=== PATIENT | female | born 1945 | race African-American/Black ===

== ENCOUNTER 2017-06-11 17:58 | Inpatient (IN) | payer OTHER ==
[~2017-06-11] VITALS: Ht 172.7 cm; Wt 81.2 kg
--- NOTE | 2017-06-11 18:07 | NUR ---
PT PLACED IN BED 10 BY EMS.
[2017-06-11 18:14] VITALS: BP 195/108
--- NOTE | 2017-06-11 18:15 | NUR ---
72 F BIBA WITH C/O ANXIETY AND CHEST TIGHTNESS STARTED SUDDENLY WHILE AT HOME; PT STS CP IS 10/10 "PRESSURE/TIGHTNESS" PROVOKED BY "HER ANIXETY" INTERMITTENT PAIN TO LEFT AND RIGHT SIDE OF CHEST; PT STS HX OF ANXIETY AND "RAN OUT OF XANAX PILLS"; PT ALSO REPORT OF COUGH AND "ALL OVER BODY" PAIN; PT IS AOX4, RR ARE EVEN AND UNLABORED; ER MD CALVILLO AWARE OF PT STATUS; NAD; PT POSITIONED TO COMFORT, BED DOWN. WILL CONTINUE TO MONITOR.
--- NOTE | 2017-06-11 18:54 | NUR ---
X-Ray at bedside.
[2017-06-11 19:01] LABS: BASOPHILS # (AUTO) 0.2 K/uL (0.00-0.22); BASOPHILS % (AUTO) 1.8 % (0.0-2.0); EOSINOPHILS # (AUTO) 0.1 K/uL (0-0.4); EOSINOPHILS % (AUTO) 0.8 % (0.0-4.0); HEMATOCRIT 36.1 % (36-48); HEMOGLOBIN 11.4 g/dL (12.0-16.0); LYMPHOCYTES # (AUTO) 2.4 K/uL (2.5-16.5); LYMPHOCYTES % (AUTO) 25.4 % (20.5-51.1); MEAN CORPUSCULAR HEMOGLOBIN 23 pg (27-31); MEAN CORPUSCULAR HGB CONC 32 g/dL (33-37); MEAN CORPUSCULAR VOLUME 73 fL (80-94); MONOCYTES # (AUTO) 0.7 K/uL (0.8-1.0); MONOCYTES % (AUTO) 7.6 % (1.7-9.3); NEUTROPHILS # (AUTO) 5.9 K/uL (1.8-7.7); NEUTROPHILS % (AUTO) 64.4 % (42.2-75.2); PLATELET COUNT (AUTO) 227 K/uL (140-450); RED BLOOD CELL COUNT(AUTO) 4.98 MIL/uL (4.20-5.40); RED CELL DISTRIBUTION WIDTH 15.4 % (11.6-13.7); WHITE BLOOD COUNT (AUTO) 9.3 K/uL (4.8-10.8)
--- NOTE | 2017-06-11 19:15 | NUR ---
PT RESTING IN BED, VSS.
[2017-06-11 19:20] LABS: PROTHROMBIN TIME 10.5 secs (10.8-13.4)
--- NOTE | 2017-06-11 19:20 | NUR ---
Pt report given to Iman PEREZ. Transfer of care at this time.
--- NOTE | 2017-06-11 19:22 | NUR ---
PT TRNF TO BED 12-AAOX4
[2017-06-11 19:45] LABS: ALBUMIN 3.4 g/dL (3.4-5.0); ANION GAP 7.5 (8-16); ASPARTATE AMINOTRANSFERASE 16 U/L (15-37); CARBON DIOXIDE 31.6 mmol/L (21-32); CHLORIDE 103 mmol/L (98-107); CREATININE 0.9 mg/dL (0.6-1.3); GLUCOSE 93 mg/dL (74-106); POTASSIUM 4.1 mmol/L (3.5-5.1); SODIUM SERUM 138 mmol/L (136-145); TOTAL BILIRUBIN 0.2 mg/dL (0.0-1.0); UREA NITROGEN, BLOOD 15 mg/dL (7-18)
[2017-06-11] MEDS ORDERED: ALPRAZolam 0.5 MG TAB PO ONE (19:55)
--- NOTE | 2017-06-11 19:58 | NUR ---
PO MEDS GIVEN-NADR AT THIS TIME
[2017-06-11] MEDS ORDERED: LORazepam 2 MG/ML VIAL IVP PRN (20:40)
[2017-06-11] MEDS ORDERED: ONDANSETRON 4 MG/2 ML VIAL IVP PRN (20:40)
[2017-06-11] MEDS ORDERED: ACETAMINOPHEN 325 MG TAB PO PRN (20:40)
[2017-06-11] MEDS ORDERED: ALPR1TAB2 PO (21:32)
[2017-06-11] MEDS ORDERED: ZOLP10TA1 PO (21:32)
[2017-06-11] MEDS ORDERED: ACET-2858 PO (21:36)
--- NOTE | 2017-06-11 21:49 | NUR ---
PT TRANSFERED TO FLOOR VIA GURNEY. NO S/S OF DISTRESS NOTED. ACCOMPANIED BY EMT AND RN .
[2017-06-11 21:55] VITALS: BP 140/71
--- NOTE | 2017-06-11 21:55 | NUR ---
ADMITTED A 72F FROM ER. CAME BY BERNADINE WITH C/O CHEST PAIN, X FEW DAYS, WITH OCCASIONAL COUGH AND WHEEZING . PT AWAKE, ALERT AND ORIENTED X4. ON TELE MONITOR, SR WITH BBB. AMBULATORY WITH CANE AT HOME BUT SHE SAID HER CANE GOT BROKEN. HX: FALLING 2 WEEKS AGO. WITH ARTHRITIS ON BOTH KNEES AND HANDS AND ALSO LT HIP. PT HAS HL ON THE LT AC#20, CLEAR AND PATENT. PLAN OF CARE DISCUSSED AND VERBALIZED UNDERSTANDING. ORIENTED TO HOSPITAL ROUTINES, CALL LIGHT AND VISITING HOURS. BED ON LOW POSITION, FREQUENT ROUNDS NEEDED. CALL LIGHT PLACED WITHIN EASY REACH. WILL CONTINUE TO MONITOR.
--- NOTE | 2017-06-11 21:55 | NUR ---
REPORT GIVEN TO ANA WELLS AT BEDSIDE.
[2017-06-11] MEDS ORDERED: ZOLPIDEM 5 MG TAB PO PRN (22:25)
[2017-06-11] MEDS ORDERED: cloNIDine 0.1 MG TAB PO PRN (22:25)
--- NOTE | 2017-06-11 23:50 | NUR ---
PT C/O PAIN FROM ARTHRITIS. PT IS TAKING HYDROCODONE 5/325 PO NEEDED FRO PAIN . PT SAID SHE ONLY HAVE ALLERGY TO CODEINE ITSELF BUT SHE IS OK WITH HYDROCODONE . PAGED DR. SALOMON . CALLED BACK AND MADE ORDERS FOR BOTH HYDROCODONE AND ALSO CYMBALTA THAT PT ALSO TAKING AT HOME.
[2017-06-11] MEDS ORDERED: DULoxetine 30 MG CAPDR PO SCH (23:55)
--- NOTE | 2017-06-12 00:05 | NUR ---
USED BEDPAN TO VOID . NO C/O PAIN AT THIS TIME.
[2017-06-12 00:30] VITALS: BP 146/72
[2017-06-12] MEDS: HYDROcodone/APAP 5/325 MG 1 TAB TAB PO PRN ×3 (01:07→16:20)
--- NOTE | 2017-06-12 01:40 | NUR ---
RN SHIP JOINER UNABLE TO OVERRIDE REZAALTA . CHECK PT, SLEEPING AT THIS TIME.
--- NOTE | 2017-06-12 02:45 | NUR ---
DAUGHTER CALLED BACK . MADE AWARE TO BRING ALL HOME MEDS ERINN .
[2017-06-12] MEDS: ALPRAZolam 0.5 MG TAB PO PRN ×3 (03:20→20:21)
--- NOTE | 2017-06-12 03:20 | NUR ---
PT IS ANXIOUS. ,MEDICATED ORDERED WITH XANAX. WILL CONTINUE TO MONITOR.
[2017-06-12 03:50] LABS: CREATINE KINASE MB 0.4 ng/mL (0-3.6)
[2017-06-12 04:00] VITALS: BP 151/81
--- NOTE | 2017-06-12 07:10 | NUR ---
ENDORSED PT IN STABLE CONDITION TO AM NURSE.
--- NOTE | 2017-06-12 07:30 | NUR ---
RECEIVED PT ON BED AAOX4. NO SOB NOTED. NO C/O PAIN AT THIS TIME. IV TO LT AC PATENT AND INTACT. CHEST CLEAR. ABDOMEN SOFT, BOWEL SOUNDS PRESENT. INSTRUCTED PT TO CALL FOR ASSISTANCE, CALL LIGHT WITHIN REACH, PT VERBALIZED UNDERSTANDING
[2017-06-12 08:00] VITALS: BP 130/79
[2017-06-12 08:18] LABS: BASOPHILS # (AUTO) 0.1 K/uL (0.00-0.22); BASOPHILS % (AUTO) 1.6 % (0.0-2.0); EOSINOPHILS # (AUTO) 0.1 K/uL (0-0.4); EOSINOPHILS % (AUTO) 1.2 % (0.0-4.0); HEMATOCRIT 35.8 % (36-48); LYMPHOCYTES # (AUTO) 1.9 K/uL (2.5-16.5); MEAN CORPUSCULAR HEMOGLOBIN 23 pg (27-31); MEAN CORPUSCULAR HGB CONC 31 g/dL (33-37); MEAN CORPUSCULAR VOLUME 73 fL (80-94); MONOCYTES # (AUTO) 0.4 K/uL (0.8-1.0); MONOCYTES % (AUTO) 5.3 % (1.7-9.3); NEUTROPHILS # (AUTO) 5.9 K/uL (1.8-7.7); NEUTROPHILS % (AUTO) 68.9 % (42.2-75.2); PLATELET COUNT (AUTO) 213 K/uL (140-450); RED BLOOD CELL COUNT(AUTO) 4.87 MIL/uL (4.20-5.40); WHITE BLOOD COUNT (AUTO) 8.4 K/uL (4.8-10.8)
[2017-06-12 08:34] LABS: ALBUMIN 3.1 g/dL (3.4-5.0); ANION GAP 9.6 (8-16); ASPARTATE AMINOTRANSFERASE 16 U/L (15-37); CARBON DIOXIDE 28.2 mmol/L (21-32); CHLORIDE 106 mmol/L (98-107); CREATININE 0.8 mg/dL (0.6-1.3); GLUCOSE 101 mg/dL (74-106); POTASSIUM 3.8 mmol/L (3.5-5.1); SODIUM SERUM 140 mmol/L (136-145); TOTAL BILIRUBIN 0.4 mg/dL (0.0-1.0); UREA NITROGEN, BLOOD 12 mg/dL (7-18)
[2017-06-12] MEDS: ASPIRIN 81 MG TAB.CHEW PO SCH (09:29)
[2017-06-12] MEDS: METOPROLOL 25 MG TAB PO SCH ×2 (09:30→20:21)
[2017-06-12] MEDS: DULoxetine 30 MG CAPDR PO SCH ×2 (09:30→20:21)
--- NOTE | 2017-06-12 10:26 | NUR ---
PATIENT HAS BEEN SCREENED AND CATEGORIZED MODERATE NUTRITION RISK. PATIENT WILL BE SEEN WITHIN 3-5 DAYS OF ADMISSION. 06/13/17-06/15/[address]
[2017-06-12 12:00] VITALS: BP 142/83
--- NOTE | 2017-06-12 12:21 | NUR ---
SPOKE WITH DAYNA FROM [facility]. SHE SAID ONLY FAX REVIEW TO THEM. FAXED INITIAL REVIEW TO [facility] [phone] PHONE DAYNA [phone]
--- NOTE | 2017-06-12 12:36 | NUR ---
DR. HUERTAS HERE TO SEE PT. Destiny CARREON TO FOLLOW UP WITH CARDIO CONSULT.
[2017-06-12 13:48] LABS: CREATINE KINASE MB 0.5 ng/mL (0-3.6)
[2017-06-12 16:00] VITALS: BP 138/70
--- NOTE | 2017-06-12 16:40 | NUR ---
PT RESTING. NO SOB NOTED. NO SIGNS OF PAIN.
--- NOTE | 2017-06-12 19:15 | NUR ---
PT AWAKE. NO SOB NOTED. NO COMPLAINTS MADE. WILL ENDORSE TO NEXT SHIFT NURSE FOR CONTINUITY OF CARE.
--- NOTE | 2017-06-12 19:20 | NUR ---
RECEIVED PT IN STABLE CONDITION FROM AM NURSE. AWAKE, ALERT AND ORIENTED X4. ON TELE MONITOR. WITH NO C/O PAIN AT THIS TIME. CAN BE UP TO BSC WITH ASSISTANCE. HL ON THE LT AC #20. CLEAR AND PATENT. WITH FAMILY MEMBERS AT BEDSIDE. DR. TIMOTHY Dixon CAME AND SEEN PT. PLAN OF CARE DISCUSSED AND VERBALIZED UNDERSTANDING. CALL LIGHT PLACED WITHINE ASY REACH. WILL CONTINUE TO MONITOR.
[2017-06-12 20:00] VITALS: BP 149/77
--- NOTE | 2017-06-12 20:21 | NUR ---
PT C/O ANXIETY. REQUESTED FOR XANAX. GIVEN ORDERED. WILL CONTINUE TO MONITOR.
--- NOTE | 2017-06-12 22:00 | NUR ---
MADE ROUNDS. ASLEEP. NO S/S OF ANY DISCOMFORT NOR PAIN NOTED.
[2017-06-12 23:03] LABS: CREATINE KINASE MB 0.3 ng/mL (0-3.6)
[2017-06-13] LABS: BARBITURATE, URINE NEG. ng/ml (NEG <=200); BENZODIAZEPINE, URINE POS. ng/mL (NEG <=200); CANNABINOID, URINE NEG. ng/mL (NEG <=50); COCAINE, URINE NEG. ng/mL (NEG <=300); OPIATE, URINE POS. ng/mL (NEG <=2000); PHENCYCLIDINE SCREEN,URINE NEG. ng/mL (NEG <=25)
[2017-06-13 00:50] VITALS: BP 141/75
--- NOTE | 2017-06-13 01:30 | NUR ---
MADE ROUNDS .PT IS SLEEPING WELL. NO S/S OF ANY DISCOMFORT NOR PAIN NOTED.
--- NOTE | 2017-06-13 02:30 | NUR ---
MADE ROUNDS. PT STILL SLEEPING AT THIS TIME. NO DISTRESS NOTED.
[2017-06-13 05:11] VITALS: BP 136/78
[2017-06-13] MEDS: ALPRAZolam 0.5 MG TAB PO PRN ×2 (05:17→15:07)
--- NOTE | 2017-06-13 05:17 | NUR ---
PT WOKE UP AND SAID SHE FEELS SHAKY,ANXIOUS. MEDICATED WITH XANAX ORDERED.
[2017-06-13] MEDS: HYDROcodone/APAP 5/325 MG 1 TAB TAB PO PRN ×3 (05:45→17:56)
[2017-06-13] MEDS ORDERED: LEVOTHYROXINE 0.075 MG TAB PO SCH (06:30)
--- NOTE | 2017-06-13 07:30 | NUR ---
RECEIVED PT REPORT FROM CHIEF ENGINEER RN. PT AAOX4. NO SOB NOTED. NO C/O PAIN AT THIS TIME. IV TO LT AC PATENT AND INTACT, SALINE LOCKED. CHEST CLEAR. ABDOMEN SOFT, BOWEL SOUNDS PRESENT. BED IN LOW POSITION, CALL LIGHT WITHIN REACH, WILL CONTINUE TO MONITOR.
--- NOTE | 2017-06-13 07:34 | NUR ---
ENDORSED PT IN STABLE CONDITION TO AM NURSE.
[2017-06-13 08:00] VITALS: BP 137/76
--- NOTE | 2017-06-13 08:42 | NUR ---
CM NOTE FAXED CONCURRENT REVIEW TO [facility] [phone] PHONE DAYNA [phone]
[2017-06-13] MEDS ORDERED: ATORVASTATIN 20 MG TAB PO SCH (09:00)
[2017-06-13] MEDS: ASPIRIN 81 MG TAB.CHEW PO SCH (09:27)
[2017-06-13] MEDS: DULoxetine 30 MG CAPDR PO SCH (09:27)
[2017-06-13] MEDS: METOPROLOL 25 MG TAB PO SCH (09:27)
[2017-06-13 12:00] VITALS: BP 131/77
--- NOTE | 2017-06-13 12:30 | NUR ---
DR HUERTAS HAS SEEN THE PT. NO S/S OF DISTRESS NOTED. PT HAS BEEN RULED OUT [facility]
--- NOTE | 2017-06-13 13:57 | NUR ---
OLIVIER NOTE FAXED ORDER FOR HOME HEALTH TO [facility] [phone]. PER SEAN GALVAN PH# [phone], SHE IS ARRANGING HOME HEALTH FOR NURSING EVAL.
[2017-06-13] MEDS ORDERED: ALPR1TAB2 PO ×2 (15:53→15:55)
[2017-06-13] MEDS ORDERED: ATOR10TA PO ×2 (15:57→16:01)
[2017-06-13 16:00] VITALS: BP 135/73
--- NOTE | 2017-06-13 16:00 | NUR ---
CALLED PT'S PHARMACY OF [facility] IN [place]. CONFIRMED THAT PT'S RX FOR LEVOTHYROXINE, REFILL TIL NOVEMBER.
--- NOTE | 2017-06-13 16:30 | NUR ---
DISCHARGE PT PER MD PROTOCOL. DISCHARGE INSTRUCTIONS GIVEN, MEDICATION TEACHINGS GIVEN, PT VERBALIZED UNDERSTANDING. PT SIGNED ALL DISCHARGE PAPER WORK. PT'S IV DC'ED, TIP INTACT, PRESSURE APPLIED. NO S/S OF DISTRESS NOTED. PT WANTS TO HAVE SHOWER HERE AND WAITING FOR RIDE FROM HER DAUGHTER.
== END 2017-06-13 19:00 | disposition home health service (06) | DRG 203 ==
LOC: MED 17:58 → MTU 21:38
PROVIDERS: ADMIT Hospitalist; ATTEND Hospitalist
DX: J20.9 Acute bronchitis, unspecified (principal); I11.9 Hypertensive heart disease without heart failure; I45.10 Unspecified right bundle-branch block; E03.9 Hypothyroidism, unspecified; I25.10 Atherosclerotic heart disease of native coronary artery without angina pectoris; I44.0 Atrioventricular block, first degree; E66.09 Other obesity due to excess calories; F32.9 Major depressive disorder, single episode, unspecified; F41.9 Anxiety disorder, unspecified; M19.90 Unspecified osteoarthritis, unspecified site; I25.2 Old myocardial infarction; Z88.0 Allergy status to penicillin; Z88.5 Allergy status to narcotic agent; Z95.1 Presence of aortocoronary bypass graft; Z68.27 Body mass index [BMI] 27.0-27.9, adult; Z28.21 Immunization not carried out because of patient refusal
CPT/HCPCS: 36415; 80053; 80305; 82550; 82553; 83880; 84484; 85025; 85610; 85730; 87081; 93005; 99285; Q0092

== ENCOUNTER 2021-05-16 10:24 | Emergency (ER) | payer OTHER, MEDICAID ==
[~2021-05-16] VITALS: Ht 170.2 cm; Wt 96.6 kg
[~2021-05-16 10:24] MED LIST: ALPR1TAB2 PO; ATOR10TA PO; HYDR-5092 PO; ZOLP10TA1 PO
[2021-05-16 10:36] VITALS: BP 160/90
[2021-05-16] MEDS ORDERED: LORazepam 1 MG TAB PO ONE (10:55)
[2021-05-16] MEDS ORDERED: KETOROLAC 30 MG/ML VIAL IM ONE (10:55)
--- NOTE | 2021-05-16 11:15 | NUR ---
LITIGATION ASSOCI[facility].
--- NOTE | 2021-05-16 11:32 | NUR ---
76 y/o f biba als from home, pt presents to ed with general body pain, anxiety and htn. pt states she was on hydrocodone and was taking consistently for hip and knee replacement pain. pcp discontinued medication and is now having same pains. pt ambluates with assist. Skin is pink/warm/dry. a&o x4. Lungs clear bl, heart rate even and regular. Pt denies any fever, cp, sob, or cough at this time. Patient states pain is 10/10 at this time. Vss. patient positioned for comfort. Hob elevated. Bed down. Ermd made aware of pt. pt baseline is incontinent, diapered. pmh: htn, dm2 allergy: penicillin, codeine med: hydrocodone, lyrica
--- NOTE | 2021-05-16 13:02 | NUR ---
daughter was called per alivia hope, she will providing her a transport. granddaughter is at home to help ambulate with assist.
[2021-05-16 13:21] VITALS: BP 160/90
--- NOTE | 2021-05-16 13:21 | NUR ---
Patient discharged with v/s stable. Written and verbal after care instructions given and explained. Patient verbalized understanding. Wheel Chair Assisted with to car. All questions addressed prior to discharge. Advised to follow up with PMD. aiden two rn, pt refused to sign
== END 2021-05-16 13:21 | disposition home or self-care (01) ==
LOC: MED 10:24
DX: M25.552 Pain in left hip (principal); G89.29 Other chronic pain; F41.9 Anxiety disorder, unspecified; I25.10 Atherosclerotic heart disease of native coronary artery without angina pectoris; E11.9 Type 2 diabetes mellitus without complications; I10 Essential (primary) hypertension; Z86.39 Personal history of other endocrine, nutritional and metabolic disease; Z98.890 Other specified postprocedural states; Z96.642 Presence of left artificial hip joint; M25.561 Pain in right knee; Z79.899 Other long term (current) drug therapy; Z79.891 Long term (current) use of opiate analgesic; Z88.0 Allergy status to penicillin; Z88.5 Allergy status to narcotic agent
CPT/HCPCS: 73502; 96372; 99283; J1885; Q0092

== ENCOUNTER 2022-12-19 15:37 | Emergency (ER) | payer OTHER ==
[~2022-12-19] VITALS: Ht 170.2 cm; Wt 81.6 kg
[2022-12-19 15:41] VITALS: BP 118/78; PULSE 88; RESP 17; TEMP 97.4; O2SAT 97
--- NOTE | 2022-12-19 15:46 | NUR ---
MAIK , ALS PATIENT BIBA TO [facility]
[2022-12-19] MEDS ORDERED: KETOROLAC 60 MG/2 ML VIAL IM ONE (16:15)
[2022-12-19] MEDS ORDERED: OMEP40EC24 PO (16:26)
[2022-12-19] MEDS ORDERED: CIPR500T4 PO (16:26)
[2022-12-19] MEDS ORDERED: ONDA8TAB87 PO (16:26)
[2022-12-19] MEDS ORDERED: HYDR-5191 PO (16:26)
--- NOTE | 2022-12-19 17:30 | NUR ---
Patient discharged with v/s stable. Written and verbal after care instructions given and explained. Patient verbalized understanding. Ambulatory with steady gait. All questions addressed prior to discharge. Advised to follow up with PMD.
[2022-12-20 07:26] VITALS: O2SAT 97
== END 2022-12-19 17:30 | disposition home or self-care (01) ==
LOC: MED 15:37
DX: R10.13 Epigastric pain (principal); R19.7 Diarrhea, unspecified; R11.2 Nausea with vomiting, unspecified; M25.561 Pain in right knee; E11.9 Type 2 diabetes mellitus without complications; E03.9 Hypothyroidism, unspecified; I11.0 Hypertensive heart disease with heart failure; Z88.0 Allergy status to penicillin; Z88.5 Allergy status to narcotic agent; Z79.4 Long term (current) use of insulin; Z79.899 Other long term (current) drug therapy; Z98.890 Other specified postprocedural states
CPT/HCPCS: 96372; 99283; J1885

== ENCOUNTER 2022-12-22 17:08 | Observation (INO) | payer OTHER ==
[~2022-12-22] VITALS: Ht 172.7 cm; Wt 93.9 kg
[~2022-12-22 17:08] MED LIST changes: +CIPR500T4 PO; +HYDR-5191 PO; +OMEP40EC24 PO; +ONDA8TAB87 PO
[2022-12-22 17:33] VITALS: BP 119/59; PULSE 69; RESP 20; TEMP 98; O2SAT 97
[2022-12-22 18:02] LABS: BASOPHILS # (AUTO) 0.1 K/uL (0.00-0.22); BASOPHILS % (AUTO) 0.8 % (0.0-2.0); EOSINOPHILS # (AUTO) 0.1 K/uL (0-0.4); HEMATOCRIT 36.3 % (36-48); HEMOGLOBIN 11.5 g/dL (12.0-16.0); LYMPHOCYTES # (AUTO) 2.5 K/uL (2.5-16.5); LYMPHOCYTES % (AUTO) 22.1 % (20.5-51.1); MEAN CORPUSCULAR HEMOGLOBIN 23 pg (27-31); MEAN CORPUSCULAR HGB CONC 32 g/dL (33-37); MEAN CORPUSCULAR VOLUME 72.6 fL (80-94); MONOCYTES # (AUTO) 0.7 K/uL (0.8-1.0); MONOCYTES % (AUTO) 6.5 % (1.7-9.3); NEUTROPHILS % (AUTO) 69.6 % (42.2-75.2); PLATELET COUNT (AUTO) 475 K/uL (140-450); RED CELL DISTRIBUTION WIDTH 14.7 % (11.6-13.7); WHITE BLOOD COUNT (AUTO) 11.5 K/uL (4.8-10.8)
[2022-12-22 18:25] LABS: ALBUMIN 2.9 g/dL (3.4-5.0); ANION GAP 4.3 (8-16); ASPARTATE AMINOTRANSFERASE 34 U/L (15-37); CARBON DIOXIDE 37.3 mmol/L (21-32); CHLORIDE 98 mmol/L (98-107); CREATININE 1.3 mg/dL (0.6-1.3); GLUCOSE 130 mg/dL (74-106); LIPASE 116 U/L (73-393); SODIUM SERUM 137 mmol/L (136-145); TOTAL BILIRUBIN 0.2 mg/dL (0.0-1.0); UREA NITROGEN, BLOOD 7 mg/dL (7-18)
[2022-12-22 18:35] LABS: POTASSIUM 2.6 mmol/L (3.5-5.1)
--- NOTE | 2022-12-22 19:03 | NUR ---
pt to bed 11 w/c assisted
[2022-12-22] MEDS ORDERED: POTASSIUM CHLORIDE 10 MEQ TABER PO ONE (19:20)
[2022-12-22] MEDS ORDERED: ONDANSETRON 4 MG/2 ML VIAL IVP ONE (19:25)
[2022-12-22] MEDS ORDERED: NACL 0.9% 1,000 ML IV ONE (19:25)
--- NOTE | 2022-12-22 19:29 | NUR ---
Report given to ANA Lee for transfer of care.
[2022-12-22] MEDS: MORPHINE SULFATE 4 MG/ML SYR IVP ONE ×2 (20:07→20:13)
[2022-12-22] MEDS ORDERED: LOPERAMIDE 2 MG CAP PO PRN (20:15)
[2022-12-22] MEDS ORDERED: HYDROcodone/APAP 5/325 MG 1 TAB TAB PO PRN (20:15)
[2022-12-22] MEDS ORDERED: ONDANSETRON 4 MG/2 ML VIAL IVP PRN (20:15)
[2022-12-22] MEDS ORDERED: ACETAMINOPHEN 325 MG TAB PO PRN (20:15)
--- NOTE | 2022-12-22 20:15 | NUR ---
Pt refused morphine stating it makes her feel nauseated, per pt norco 10 mg usually helps better with her pain. ERMD made aware.
[2022-12-22] MEDS ORDERED: HYDROcodone/APAP 10/325 MG 1 TAB TAB PO ONE (20:25)
[2022-12-22] MEDS: NACL 0.9% 1,000 ML IV SCH (21:06)
--- NOTE | 2022-12-22 23:15 | NUR ---
Resting comfortably at this time. No s/s pain or discomfort. Rise and fall of chest noted.
--- NOTE | 2022-12-23 01:17 | NUR ---
Pt c/o lower back and buttock pain 9/. Pt stated she would like to have morphine as helps her better with pain. PRN morphine given as ordered.
[2022-12-23] MEDS: MORPHINE SULFATE 4 MG/ML SYR IVP PRN (01:24)
--- NOTE | 2022-12-23 03:37 | NUR ---
Pt resting comfortably. Rise and fall of chest noted.
--- NOTE | 2022-12-23 05:03 | NUR ---
Pt awake at this time and eating food, no s/s distress.
--- NOTE | 2022-12-23 07:06 | NUR ---
Pt noted resting comfortably at this time. No s/s distress or discomfort, Rise and fall of chest noted.
[2022-12-23 07:14] LABS: BASOPHILS # (AUTO) 0.1 K/uL (0.00-0.22); BASOPHILS % (AUTO) 0.5 % (0.0-2.0); EOSINOPHILS # (AUTO) 0.2 K/uL (0-0.4); EOSINOPHILS % (AUTO) 1.6 % (0.0-4.0); HEMATOCRIT 33.7 % (36-48); HEMOGLOBIN 10.7 g/dL (12.0-16.0); LYMPHOCYTES # (AUTO) 1.8 K/uL (2.5-16.5); LYMPHOCYTES % (AUTO) 18.1 % (20.5-51.1); MEAN CORPUSCULAR HEMOGLOBIN 23 pg (27-31); MEAN CORPUSCULAR HGB CONC 32 g/dL (33-37); MEAN CORPUSCULAR VOLUME 73.5 fL (80-94); MONOCYTES # (AUTO) 0.8 K/uL (0.8-1.0); MONOCYTES % (AUTO) 7.9 % (1.7-9.3); NEUTROPHILS # (AUTO) 7.3 K/uL (1.8-7.7); NEUTROPHILS % (AUTO) 71.9 % (42.2-75.2); PLATELET COUNT (AUTO) 365 K/uL (140-450); RED BLOOD CELL COUNT(AUTO) 4.59 MIL/uL (4.20-5.40); RED CELL DISTRIBUTION WIDTH 15.1 % (11.6-13.7); WHITE BLOOD COUNT (AUTO) 10.1 K/uL (4.8-10.8)
--- NOTE | 2022-12-23 07:26 | NUR ---
Report given to Jimena PEREZ
[2022-12-23 07:52] LABS: CARBON DIOXIDE 31.7 mmol/L (21-32); CHLORIDE 102 mmol/L (98-107); CREATININE 1.1 mg/dL (0.6-1.3); GLUCOSE 128 mg/dL (74-106); SODIUM SERUM 140 mmol/L (136-145); UREA NITROGEN, BLOOD 5 mg/dL (7-18)
[2022-12-23 08:02] LABS: POTASSIUM 2.7 mmol/L (3.5-5.1)
[2022-12-23] MEDS: NACL 0.9% 1,000 ML IV SCH ×2 (08:45→21:15)
[2022-12-23] MEDS: DOCUSATE SODIUM 100 MG GELCAP PO SCH (09:00)
[2022-12-23] MEDS ORDERED: POTASSIUM CHLORIDE 10 MEQ TABER PO ONE (09:05)
[2022-12-23] MEDS ORDERED: POTASSIUM CHLORIDE 40 MEQ, LIDOCAINE 1% 25 MG in NACL 0.9% 250 ML IV ONE (09:05)
[2022-12-23 10:00] VITALS: RESP 18; O2SAT 97
--- NOTE | 2022-12-23 10:00 | NUR ---
PT ARRIVED TO UNIT FROM ER - [facility]IA [facility]. NO SIGNS OF DISTRESS, STABLE UPON ARRIVAL. ORIENTED PT TO ROOM, BED MECHANICS, CALL LIGHT. PLACED CALL LIGHT WITHIN REACH. NO FURTHER NEEDS ARE TO BE MET AT THIS TIME. WILL CONTINUE WITH PT CARE.
[2022-12-23] MEDS ORDERED: HYDROcodone/APAP 10/325 MG 1 TAB TAB PO PRN (11:25)
[2022-12-23 16:00] VITALS: BP 102/53; PULSE 59; RESP 18; TEMP 97.9; O2SAT 97
--- NOTE | 2022-12-23 19:20 | NUR ---
ES[place]. REPORT FROM JOSHUA PEREZ. PATIENT SITTING ON BED, CONVERSING WITH SOMEBODY IN THE CELLPHONE. A/OX4. RESPIRATION EVEN AND UNLABORED. IV OF NS INFUSING AT 80 ML/HR, LEFT AC G20. AMBULATED WITH ASSISTANCE. INSTRUCTED TO CALL NURSE WHEN NEEDING HELP. VERBALIZED UNDERSTANDING. DENIES PAIN 0/10.
[2022-12-23 20:00] VITALS: RESP 18; O2SAT 96
--- NOTE | 2022-12-23 20:00 | NUR ---
Patient's Plan of Care was discussed and reviewed with SOHEILA CÁRDENAS
--- NOTE | 2022-12-23 21:00 | NUR ---
ASSISTED TO GET OUT OF BED TO GO TO THE BR TO VOID. BACK TO BED AFTER VOIDING. SAFETY MAINTAINED.
[2022-12-23 22:00] VITALS: BP 104/57; PULSE 73; RESP 18; TEMP 97.5; O2SAT 96
--- NOTE | 2022-12-23 23:00 | NUR ---
CHECKED PATIENT, SLEEPING COMFORTABLY IN BED. RESPIRATION EVEN AND UNLABORED. CALL LIGHT IN REACH.
--- NOTE | 2022-12-24 | NUR ---
SLEEPING COMFORTABLY IN BED, RESPIRATION EVEN AND UNLABORED.
[2022-12-24 01:02] VITALS: BP 150/68; PULSE 71; RESP 20; TEMP 97.8; O2SAT 95
[2022-12-24] MEDS: MORPHINE SULFATE 4 MG/ML SYR IVP PRN (01:17)
--- NOTE | 2022-12-24 01:30 | NUR ---
COMPLAINING OF PAIN IN THE LEFT BUTTOCKS, WITH A SMALL GROUP OF PUSTULES. WANTS MD TO ORDER MEDICATION AND ORDER HER HOME MED NORCO. WILL INFORM .
--- NOTE | 2022-12-24 02:00 | NUR ---
ASSISTED OUT OF B ED TO GO TO THE BR. TO VOID. BACK TO BED AFTER VOIDING. SAFETY MAINTAINED.
[2022-12-24 04:00] VITALS: BP 148/70; PULSE 79; RESP 20; TEMP 97.8; O2SAT 95
--- NOTE | 2022-12-24 04:45 | NUR ---
ASSISTED TO BR TO VOID, BACK TO BED AFTER VOIDING. WARM BLANKET GIVEN REQUESTED.
[2022-12-24 06:46] LABS: BASOPHILS # (AUTO) 0.1 K/uL (0.00-0.22); EOSINOPHILS # (AUTO) 0.2 K/uL (0-0.4); EOSINOPHILS % (AUTO) 1.6 % (0.0-4.0); HEMATOCRIT 34.9 % (36-48); HEMOGLOBIN 11.1 g/dL (12.0-16.0); LYMPHOCYTES # (AUTO) 2.7 K/uL (2.5-16.5); LYMPHOCYTES % (AUTO) 22.7 % (20.5-51.1); MEAN CORPUSCULAR HEMOGLOBIN 23 pg (27-31); MEAN CORPUSCULAR HGB CONC 32 g/dL (33-37); MEAN CORPUSCULAR VOLUME 72.6 fL (80-94); MONOCYTES # (AUTO) 0.7 K/uL (0.8-1.0); MONOCYTES % (AUTO) 6.4 % (1.7-9.3); NEUTROPHILS # (AUTO) 8.1 K/uL (1.8-7.7); NEUTROPHILS % (AUTO) 68.3 % (42.2-75.2); PLATELET COUNT (AUTO) 427 K/uL (140-450); RED CELL DISTRIBUTION WIDTH 15.1 % (11.6-13.7); WHITE BLOOD COUNT (AUTO) 11.8 K/uL (4.8-10.8)
[2022-12-24 07:03] LABS: ANION GAP 10.4 (8-16); CARBON DIOXIDE 29.4 mmol/L (21-32); CHLORIDE 103 mmol/L (98-107); CREATININE 0.9 mg/dL (0.6-1.3); GLUCOSE 88 mg/dL (74-106); POTASSIUM 3.8 mmol/L (3.5-5.1); SODIUM SERUM 139 mmol/L (136-145); UREA NITROGEN, BLOOD 6 mg/dL (7-18)
--- NOTE | 2022-12-24 07:04 | NUR ---
receive the patient from the operations supervisor 2nd shift rn in rm 116 aox4 with admitting diagnosis of diarrhea for 5 days , dehydration . will continue to monitor .
--- NOTE | 2022-12-24 07:30 | NUR ---
CONDITION REMAIN STABLE. SAFETY MAINTAINED. ALL NEEDS ATTENDED. ENDORSED TO NAA SHAH FOR CONTINUITY OF CARE.
[2022-12-24 08:00] VITALS: BP 97/48; PULSE 60; RESP 17; TEMP 97.1; O2SAT 95
[2022-12-24 08:07] VITALS: RESP 20; O2SAT 99
[2022-12-24] MEDS: DOCUSATE SODIUM 100 MG GELCAP PO SCH (09:00)
[2022-12-24] MEDS: NACL 0.9% 1,000 ML IV SCH (10:28)
--- NOTE | 2022-12-24 11:05 | NUR ---
pharmacy called the rn together with the patient for the [place] despite the pt allergy to codeine . pt stated she is taking norco at home .
--- NOTE | 2022-12-24 11:32 | NUR ---
PATIENT HAS BEEN SCREENED AND CATEGORIZED MODERATE NUTRITION RISK. PATIENT WILL BE SEEN WITHIN 3-5 DAYS OF ADMISSION. 12/22/22-12/27/[address]
[2022-12-24] MEDS ORDERED: HYDR-5191 PO (12:46)
[2022-12-24 15:48] VITALS: BP 132/85; PULSE 67; RESP 20; TEMP 97.1
[2022-12-24 16:00] VITALS: BP 121/61; PULSE 69; RESP 18; TEMP 97.5; O2SAT 95
--- NOTE | 2022-12-24 17:43 | NUR ---
patient discharge with pain , antixiety medication for home . will continue to monitor
--- NOTE | 2022-12-24 19:05 | NUR ---
will endorse to Krishna for discharge tonight after wound dressing . patient stable to discharge home
--- NOTE | 2022-12-24 19:50 | NUR ---
CLEANSE PATIENT'S BUTTOCKS WITH NS , APPLIED BETADINE AND COVERED WITH GAUZE. NO OPEN WOUND NOTED. PATIENT WAS PICKED UP BY HER DAUGHTER
--- NOTE | 2022-12-28 13:22 | NUR ---
CALLED DR LISHA CORTES LOCATED AT [address] [place] [address]. SPOKE WITH SAYRA WHO WAS ABLE TO HELP ME SCHEDULE A FOLLOW UP APPOINTMENT FOR 12/29/2022 AT 1540. CALLED PATIENT AND WAS ABLE TO INFORM HER OF THE ABOVE INFORMATION.
== END 2022-12-24 19:50 | disposition home or self-care (01) ==
LOC: MED 17:08 → MMU 20:15 → MTU 12-23 06:39
PROVIDERS: ADMIT Student in an Organized Health Care Education/Training Program; ATTEND Student in an Organized Health Care Education/Training Program
DX: E86.0 Dehydration (principal); R19.7 Diarrhea, unspecified; R11.2 Nausea with vomiting, unspecified; E87.6 Hypokalemia; F11.90 Opioid use, unspecified, uncomplicated; E78.5 Hyperlipidemia, unspecified; M79.7 Fibromyalgia; I10 Essential (primary) hypertension; I25.10 Atherosclerotic heart disease of native coronary artery without angina pectoris; E11.9 Type 2 diabetes mellitus without complications; E66.9 Obesity, unspecified; Z79.82 Long term (current) use of aspirin; Z79.899 Other long term (current) drug therapy; Z88.0 Allergy status to penicillin
CPT/HCPCS: 36415; 71045; 80048; 80053; 83690; 85025; 86886; 86900; 86901; 93005; 96361; 96365; 96366; 96375; 96376; 99285; G0378; J2001; J2270; J2405; J3480; J7030

== ENCOUNTER 2023-12-08 01:33 | Emergency (ER) | payer OTHER ==
[~2023-12-08] VITALS: Ht 170.2 cm; Wt 77.1 kg
[~2023-12-08 01:33] MED LIST changes: -CIPR500T4 PO; +HYDR-5071 PO; -HYDR-5092 PO; -HYDR-5191 PO
[2023-12-08 01:39] VITALS: BP 112/64; PULSE 71; RESP 18; TEMP 97.4; O2SAT 98
[2023-12-08] MEDS ORDERED: HYDROcodone/APAP 5/325 MG 1 TAB TAB ONE (04:47)
[2023-12-08] MEDS ORDERED: KETOROLAC 30 MG/ML VIAL ONE (04:47)
[2023-12-08] MEDS: HYDROcodone/APAP 10/325 MG 1 TAB TAB PO STA (04:55)
[2023-12-08] MEDS ORDERED: HYDR-5071 PO (04:58)
[2023-12-08] MEDS: KETOROLAC 30 MG/ML VIAL IM ONE (05:08)
[2023-12-08 09:44] VITALS: BP 109/57; PULSE 67; RESP 12; TEMP 98; O2SAT 99
== END 2023-12-08 09:43 | disposition home or self-care (01) ==
LOC: MED 01:33
DX: M19.09 Primary osteoarthritis, other specified site (principal); Z76.0 Encounter for issue of repeat prescription; E11.9 Type 2 diabetes mellitus without complications; I10 Essential (primary) hypertension; I25.2 Old myocardial infarction; I25.10 Atherosclerotic heart disease of native coronary artery without angina pectoris; Z86.39 Personal history of other endocrine, nutritional and metabolic disease; Z79.899 Other long term (current) drug therapy; Z88.0 Allergy status to penicillin; Z88.5 Allergy status to narcotic agent
CPT/HCPCS: 96372; 99283; J1885